=== PATIENT | male | born 2000 | race African-American/Black ===

== ENCOUNTER 2022-06-04 11:48 | Emergency (ER) | payer MEDICAID, OTHER ==
[~2022-06-04] VITALS: Ht 170.2 cm; Wt 75.7 kg
[2022-06-04 13:36] VITALS: BP 117/84
[2022-06-04] MEDS ORDERED: DOXY-338 PO (14:28)
[2022-06-04] MEDS ORDERED: cefTRIAXone SOD 1,000 MG VL IM ONE (14:30)
[2022-06-04 15:24] LABS: Urine Bacteria NONE SEEN /hpf (None Seen); Urine Blood Negative /uL (Negative); Urine Mucus FEW (None Seen); Urine Specific Gravity 1.028 (1.001-1.035); Urine WBC 6 /hpf (0 - 3)
== END 2022-06-04 14:41 | disposition home or self-care (01) ==
LOC: ER 11:48
DX: N34.2 Other urethritis (principal); Z11.3 Encounter for screening for infections with a predominantly sexual mode of transmission
CPT/HCPCS: 81001; 87491; 87591; 96372; 99283; J0696